=== PATIENT | male | born 1955 | race Caucasian/White ===

== ENCOUNTER 2019-02-08 13:49 | Emergency (ER) | payer MEDICARE, BC ==
[2019-02-08 14:00] VITALS: BP 139/91; PULSE 87
[2019-02-08] MEDS ORDERED: Sodium Chloride 0.9% 1,000 ML IV SCH (14:15)
[2019-02-08] MEDS ORDERED: Iopamidol 612 MG/ML 100 ML Bottle IVPUSH ONE (14:19)
--- NOTE | 2019-02-08 14:31 | EDM.PDOC ---
ED HPI GENERAL MEDICAL PROBLEM - General Chief Complaint: Trauma Stated Complaint: FELL 6 - 7 FT FROM GRAIN BAGGER Time Seen by Provider: 02/08/19 14:00 Source of Information: Reports: Patient History Limitations: Reports: No Limitations - History of Present Illness INITIAL COMMENTS - FREE TEXT/NARRATIVE: A trauma alert was called for this patient. Mr. Stiles is a pleasant 63-year-old gentleman with a past medical history significant for coronary artery disease, status post an MO in April 2016, who states that he fell backwards, around 6-7 feet off of a grain bagger around 07:30 to 08:00 this morning, landing on his back in the dirt. He states that he did not strike his head, and there was no loss of consciousness. He states that he immediately developed pain to his posterior upper right back, but only if he moves his right upper extremity, takes a deep breath, bends forward, or twists his body. He has no pain if he remains still. He states that he took one tablet of [place] around 08:30 to 09:00. The patient's PCP is Dr. Ronnie Weinstein. His Employment Manager is Dr. Last Gee. His Urologist is Dr. Ventura Thornton. Upper Back Pain Score (Numeric/FACES): 9 - Related Data Allergies Allergy/AdvReac Type Severity Reaction Status Date / Time Anesthetics - Elizabet Type- Allergy Cannot Verified 02/08/19 14:34 Parabens Remember [Anesthetics - Elizabet Type] Penicillins Allergy Hives Verified 02/08/19 14:34 nausea medication Allergy Other Uncoded 05/09/16 14:49 Home Meds: Home Meds Lotensin. 10 mg PO DAILY 03/29/14 [History] Acetaminophen/HYDROcodone [[place] 325-5 MG] 1 - 2 tab PO Q6H PRN #14 tablet 02/08 [Rx] Clopidogrel [Plavix] 75 mg PO DAILY 02/08/19 [History] Lisinopril 5 mg PO DAILY 02/08/19 [History] Past Medical History Cardiovascular History: Reports: CAD, Hypertension, [place] (Apr 2016, s/p 1 coronary stent) Gastrointestinal History: Reports: Diverticulosis Genitourinary History: Reports: Renal Calculus - Past Surgical History Cardiovascular Surgical History: Reports: Coronary Artery Stent (x 1, Apr 2016) Male Surgical History: Reports: Kidney Stone Extraction Musculoskeletal Surgical History: Reports: Other (See Below) (Repair left leg degloving) Social & Family History - Tobacco Use Smoking Status *Q: Never Smoker Second Hand Smoke Exposure: No - Caffeine Use Caffeine Use: Reports: Coffee - Alcohol Use Alcohol Use History: Yes Alcohol Use Frequency: Socially - Recreational Drug Use Recreational Drug Use: No - Living Situation & Occupation Living situation: Reports: , with Spouse Occupation: Employed ([employer]) Review of Systems - Review of Systems Review Of Systems: ROS reveals no pertinent complaints other than HPI. ED EXAM, GENERAL - Physical Exam Exam: See Below Exam Limited By: No Limitations General Appearance: Alert, WD/WN, Mild Distress (appears uncomfortable) Eye Exam: Bilateral Eye: EOMI, Normal Inspection Ears: Normal External Exam, Hearing Grossly Normal Nose: Normal Inspection Throat/Mouth: Normal Inspection, Normal Lips, Normal Voice, No Airway Compromise Head: Atraumatic, Normocephalic Neck: Normal Inspection, Full Range of Motion Respiratory/Chest: No Respiratory Distress, Lungs Clear, Normal Breath Sounds, No Accessory Muscle Use, Other (Exquisite tenderness to palpation to the patient 's upper and mid right back, right lateral chest, and anterior right chest, extending to the RUQ. No visible abnormalities, such as swelling, erythema, ecchymosis, or abrasion. No crepitus felt.) Cardiovascular: Normal Peripheral Pulses, Regular Rate, Rhythm, No Gallop, No JVD, No Murmur, No Rub Peripheral Pulses: 4+: Radial (L), Radial (R) GI/Abdominal: Normal Bowel Sounds, Soft, Non-Tender, No Organomegaly, No Distention, No Abnormal Bruit, No Mass (Male) Exam: Deferred Rectal (Males) Exam: Deferred Back Exam: Normal Inspection, Full Range of Motion, Paraspinal Tenderness ( upper right). No: Vertebral Tenderness Extremities: Normal Inspection, Normal Range of Motion, No Pedal Edema, Normal Capillary Refill Neurological: Alert, Oriented, Normal Cognition, No Motor/Sensory Deficits Psychiatric: Normal Affect Skin Exam: Warm, Dry, Intact, Normal Color, No Rash EKG INTERPRETATION EKG Date: 02/08/19 Time: 14:27 Rhythm: Other (Ectopic atrial rhythm) Rate (Beats/Min): 80 [place]: LAD-Left [place] Deviation (2 LAFB) P-Wave: Present QRS: RBBB (Early transition) ST-T: Normal QT: Prolonged (QTc 492 ms) Comparison: Change From Previous EKG (Ischemic changes seen 05/09/2016 resolved) Course - Vital Signs Last Recorded V/S: Last Vital Signs Temp 36.7 C 02/08/19 13:59 Pulse 87 02/08/19 13:59 Resp 15 02/08/19 13:59 BP 139/91 H 02/08/19 13:59 Pulse Ox 94 L 02/08/19 13:59 - Orders/Labs/Meds Labs: Laboratory Tests 02/08/19 02/08/19 02/08/19 Range/Units 14:21 14:21 14:21 WBC 8.23 (4.23-9.07) K/mm3 RBC 4.77 (4.63-6.08) M/mm3 Hgb 14.7 D (13.7-17.5) gm/dl Hct 41.5 (40.1-51.0) % MCV 87.0 (79.0-92.2) fl MCH 30.8 (25.7-32.2) pg MCHC 35.4 (32.2-35.5) g/dl RDW Std Deviation 41.2 (35.1-43.9) fL Plt Count 146 L (163-337) K/mm3 MPV 10.4 (9.4-12.3) fl Neut % (Auto) 74.3 H (34.0-67.9) % Lymph % (Auto) 13.2 L (21.8-53.1) % [place] % (Auto) 9.7 (5.3-12.2) % Eos % (Auto) 2.2 (0.8-7.0) Baso % (Auto) 0.4 (0.1-1.2) % Neut # (Auto) 6.11 H (1.78-5.38) K/mm3 Lymph # (Auto) 1.09 L (1.32-3.57) K/mm3 [place] # (Auto) 0.80 (0.30-0.82) K/mm3 Eos # (Auto) 0.18 (0.04-0.54) K/mm3 Baso # (Auto) 0.03 (0.01-0.08) K/mm3 PT 10.6 (9.7-12.0) SECONDS INR 0.97 APTT 25 (22-31) SECONDS Sodium 139 (136-145) mEq/L Potassium 4.0 (3.5-5.1) mEq/L Chloride 107 (98-107) mEq/L Carbon Dioxide 21 (21-32) mEq/L Anion Gap 15.0 (5-15) BUN 25 H (7-18) mg/dL Creatinine 1.0 (0.7-1.3) mg/dL Est Cr Clr Drug Dosing 83.23 mL/min Estimated GFR (MDRD) > 60 (>60) mL/min BUN/Creatinine Ratio 25.0 H (14-18) Glucose 112 (80-115) mg/dL Calcium 9.0 (8.5-10.1) mg/dL Total Bilirubin 1.1 H (0.2-1.0) mg/dL AST 23 (15-37) U/L ALT 33 (16-63) U/L Alkaline Phosphatase 89 (46-116) U/L Total Protein 7.2 (6.4-8.2) g/dl Albumin 4.5 (3.4-5.0) g/dl Globulin 2.7 gm/dL Albumin/Globulin Ratio 1.7 (1-2) Meds: Medications Discontinued Medications Generic Name Dose Route Start Last Admin Trade Name Freq PRN Reason Stop Dose Admin Sodium Chloride 1,000 mls @ 150 mls/hr 02/08/19 14:15 02/08/19 14:35 Normal Saline IV 150 mls/hr ASDIRECTED CHUYITA Administration Iopamidol 100 ml 02/08/19 14:19 02/08/19 14:40 Isovue-300 (61%) IVPUSH 02/08/19 14:20 100 ml ONETIME ONE Administration Sodium Chloride 10 ml 02/08/19 14:19 02/08/19 14:40 Saline Flush FLUSH 02/08/19 23:00 10 ml ONETIME PRN Administration KEEP VEIN OPEN - Re-Assessments/Exams Free Text/Narrative Re-Assessment/Exam: 02/08/19 14:15 While the patient is complaining of upper right back pain only, and only with deep breaths or movements of his right upper extremity, twisting, or bending, on examination, the patient has exquisite pain to his entire anterior right side , extending down to his right upper quadrant, along with similar exquisite pain to palpation of his upper and mid right back. No tenderness to his right upper extremity. No visible abnormalities to his thorax, but given the nature of his fall, I am concerned about a significant injury, therefore I have ordered a CT of his chest, abdomen, and pelvis with IV contrast. In the meantime, I have ordered some blood work and an ECG him along with IV fluid. The patient was offered pain medication, but declined at this time. 02/08/19 15:28 The patient's CBC is remarkable for platelets mildly depressed at 146,000, but is otherwise unremarkable. His CMP is remarkable for BUN slightly elevated at 25, with a normal creatinine. His total bilirubin is slightly elevated at 1.1. Remainder of his CMP is unremarkable. Coags are all within normal limits. The report of the CT of the chest, abdomen, and pelvis is still pending. 02/08/19 16:10 CT of the chest with IV contrast is read by Dr. Grijalva as: 1. Extensive coronary artery calcification. Mildly aneurysmal ascending aorta. 2. Basilar atelectasis. 3. Other incidental findings. Nothing acute seen on CT study of the chest. CT of the abdomen and pelvis with IV contrast is read by Dr. Grijalva as: 1. Findings as noted above. Nothing acute is appreciated on CT study of the abdomen and pelvis. 02/08/19 16:36 Test results discussed with the patient and his . No significant injuries were found. The patient appears to have a chest contusion. I will discharge him home with a prescription for [place]. Departure - Departure Time of Disposition: 16:37 Disposition: Home, Self-Care 01 Condition: Good Clinical Impression: Fall as cause of accidental injury on farm as place of occurrence, Chest wall contusion - Discharge Information *PRESCRIPTION DRUG MONITORING PROGRAM REVIEWED*: Not Applicable *COPY OF PRESCRIPTION DRUG MONITORING REPORT IN PATIENT KEN: Not Applicable Prescriptions: Acetaminophen/HYDROcodone [[place] 325-5 MG] 1 - 2 tab PO Q6H PRN #14 tablet PRN Reason: Pain (Severe 7-10) Instructions: Chest Contusion, Adult, [id number] Referrals: Ronnie Weinstein Jr, MD [Primary Care Provider] - Last Gee MD [Ordering Only Provider] - Ventura Thornton MD [Ordering Only Provider] - Forms: ED Department Discharge Additional Instructions: You were seen in the emergency room after falling approximately 6 feet off of a grain bagger this morning. Workup in the ER included a CT scan of your chest, abdomen, and pelvis with IV contrast, blood work, and an ECG. Your entire workup was unremarkable. No broken bones were found. 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 This needs to be followed by your Employment Manager. A prescription for the opioid pain reliever [place] has been provided to you. You may take 1-2 tablets of [place] up to every 6 hours, as needed for pain. If you take [place], do not drive or operate heavy machinery for 12 hours afterwards. [place] will likely cause constipation, so consider taking a stool softener. Follow-up with your PCP, Dr. Ronnie Weinstein, as needed. If any other problems, please do not hesitate to return to the ER.
[2019-02-08] MEDS: Sodium Chloride 0.9% 10 ML Syringe FLUSH PRN ×2 (14:36→14:40)
--- NOTE | 2019-02-08 15:47 | CT ---
CT chest Technique: Multiple axial sections were obtained from above the lung apices inferiorly through the lung bases. Intravenous contrast was utilized. Comparison: No prior chest CT is available, prior chest x-ray of 05/09/16. Findings: Fairly extensive coronary artery calcification is seen. Ascending aorta is mildly aneurysmal at 4.1 cm. Atherosclerotic calcification is noted within the thoracic aorta. Mediastinum and hilar region show no adenopathy or mass. Mild atelectasis is seen within both posterior lungs. Lungs otherwise are clear with no pulmonary contusion being seen. No pleural effusions or pneumothorax is seen. No discrete acute rib fracture is seen. Old fracture is noted which shows bridging callus noted within the left 9th rib. Thoracic spine shows no compression deformities. Reconstructed sagittal images of the sternum show no fracture. Impression: 1. Extensive coronary artery calcification. Mildly aneurysmal ascending aorta. 2. Basilar atelectasis. 3. Other incidental findings. Nothing acute seen on CT study of the chest. Diagnostic code #2 CT abdomen and pelvis Technique: Multiple axial sections were obtained from above the dome of the diaphragm inferiorly through the pubic symphysis. Intravenous contrast was utilized. No oral contrast has been given. Comparison: No prior abdominal imaging. Findings: Liver shows mild fatty infiltration. No focal abnormality is seen within the liver. Spleen appears within normal limits. Soft tissue nodule is noted medial to the spleen compatible with accessory splenic tissue. Left kidney shows diffuse cortical thinning and contains multiple nonobstructing calculi as well as small cortical cysts. Several cortical cysts are noted within the right kidney. Right kidney shows less atrophy than on the opposite side. No hydronephrosis is seen. Pancreas is within normal limits. Gallbladder contains no calcified gallstones. Aorta shows no aneurysm. No retroperitoneal adenopathy or mesenteric abnormalities are seen. Numerous diverticuli are seen within the sigmoid colon without findings of diverticulitis. Small fat-containing inguinal hernias are noted on both sides. No free fluid or inflammatory change is seen. Appendix is seen and is normal in size. Bone window settings were reviewed which show degenerative change within the lumbar spine. Nothing acute is appreciated within the lumbar spine or within the pelvis. Impression: 1. Findings as noted above. Nothing acute is appreciated on CT study of the abdomen and pelvis. Diagnostic code #2
== END 2019-02-08 17:02 | disposition home or self-care (01) ==
LOC: JD.ED 13:49
DX: S20.211A Contusion of right front wall of thorax, initial encounter (principal); I10 Essential (primary) hypertension; I25.10 Atherosclerotic heart disease of native coronary artery without angina pectoris; I25.2 Old myocardial infarction; Z95.5 Presence of coronary angioplasty implant and graft; Z88.0 Allergy status to penicillin; Z88.6 Allergy status to analgesic agent; Z88.8 Allergy status to other drugs, medicaments and biological substances; Z79.01 Long term (current) use of anticoagulants; Z79.899 Other long term (current) drug therapy; W17.89XA Other fall from one level to another, initial encounter
CPT/HCPCS: 36415; 71260; 74177; 80053; 85025; 85610; 85730; 93005; 96360; 96361; 99284; J7040; Q9967; 93010

== ENCOUNTER 2019-04-29 15:52 | Emergency (ER) | payer MEDICARE, BC ==
[2019-04-29 16:05] VITALS: BP 158/91; PULSE 80
--- NOTE | 2019-04-29 17:21 | EDM.PDOC ---
ED HPI GENERAL MEDICAL PROBLEM - General Chief Complaint: General Stated Complaint: L SIDE RIB PAIN Time Seen by Provider: 04/29/19 16:11 Source of Information: Reports: Patient, RN Notes Reviewed - History of Present Illness INITIAL COMMENTS - FREE TEXT/NARRATIVE: Patient is 64-year-old gentleman that slipped on the ice 5 days ago following on his left side. 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 Since that time the pain is been much more severe and persistent than what he had been having previously. Zyrtec take a deep breath, hurts to move in any direction and even does have some discomfort at rest. He did have a similar fall a couple months ago but that discomfort did eventually go away, he felt that was probably just a "bruised rib that did eventually heal. Treatments CHART PICKER: Reports: Other (see below) Other Treatments CHART PICKER: percocet 1 tab at 10 am - Related Data Allergies Allergy/AdvReac Type Severity Reaction Status Date / Time Anesthetics - Elizabet Type- Allergy Cannot Verified 02/08/19 14:34 Parabens Remember [Anesthetics - Elizabet Type] Penicillins Allergy Hives Verified 02/08/19 14:34 nausea medication Allergy Other Uncoded 05/09/16 14:49 Home Meds: Home Meds Lisinopril 20 mg PO BID 02/08/19 [History] Acetaminophen/HYDROcodone [[place] 325-5 MG] 1 tab PO Q4H PRN #20 tablet 04/29/19 [Rx] Rosuvastatin [Crestor] 10 mg PO DAILY 04/29/19 [History] Past Medical History Cardiovascular History: Reports: CAD, Hypertension, [place], Stents Gastrointestinal History: Reports: Diverticulosis Genitourinary History: Reports: Renal Calculus - Past Surgical History Cardiovascular Surgical History: Reports: Coronary Artery Stent Other Cardiovascular Surgeries/Procedures: one stent Male Surgical History: Reports: Kidney Stone Extraction Musculoskeletal Surgical History: Reports: Other (See Below) Social & Family History - Tobacco Use Smoking Status *Q: Never Smoker - Caffeine Use Caffeine Use: Reports: Coffee, Soda, Tea - Recreational Drug Use Recreational Drug Use: No - Living Situation & Occupation Living situation: Reports: , with Spouse Occupation: Employed ([employer]) ED ROS GENERAL - Review of Systems Review Of Systems: See Below Constitutional: Denies: Diaphoresis HEENT: Reports: No Symptoms Respiratory: Reports: Pleuritic Chest Pain. Denies: Shortness of Breath Cardiovascular: Reports: Chest Pain GI/Abdominal: Denies: Abdominal Pain, Nausea, Vomiting Musculoskeletal: Denies: Neck Pain, Shoulder Pain, Arm Pain, Back Pain Skin: Reports: No Symptoms Neurological: Denies: Dizziness, Headache, Numbness, Tingling, Weakness ED EXAM, GENERAL - Physical Exam Exam: See Below General Appearance: Alert, Mild Distress Eye Exam: Bilateral Eye: PERRL Ears: Normal External Exam Head: Atraumatic. No: Facial Swelling Neck: Supple, Non-Tender, Full Range of Motion Respiratory/Chest: No Respiratory Distress, Lungs Clear, Normal Breath Sounds, Other (Tender L lateral ribs, no crepitus, no visible swelling or bruising) Cardiovascular: Regular Rate, Rhythm GI/Abdominal: Soft, Non-Tender Back Exam: No: Paraspinal Tenderness, Vertebral Tenderness Extremities: Normal Inspection, Normal Range of Motion Neurological: Alert, Oriented, No Motor/Sensory Deficits Skin Exam: Warm, Dry, Normal Color Course - Vital Signs Last Recorded V/S: Last Vital Signs Temp 97.2 F 04/29/19 16:03 Pulse 80 04/29/19 16:03 Resp 16 04/29/19 16:03 BP 158/91 H 04/29/19 16:03 Pulse Ox 94 L 04/29/19 16:03 - Re-Assessments/Exams Free Text/Narrative Re-Assessment/Exam: 05/01/19 14:42 On X ray there is what looks like on lateral lower rib fx or perhaps healing fx from prior injury. Discharge instr. as documened. Departure - Departure Time of Disposition: 17:20 Disposition: Home, Self-Care 01 Condition: Fair Clinical Impression: Rib fracture Qualifiers: Encounter type: initial encounter Rib fracture type: single rib Fracture type: closed Laterality: left Qualified Code(s): S22.32XA - Fracture of one rib, left side, initial encounter for closed fracture - Discharge Information Prescriptions: Acetaminophen/HYDROcodone [[place] 325-5 MG] 1 tab PO Q4H PRN #20 tablet PRN Reason: Pain Instructions: Rib Fracture, [id number] Referrals: Ronnie Weinstein Jr, MD [Primary Care Provider] - Forms: ED Department Discharge Additional Instructions: Tylenol up to 3 times daily for left chest wall pain as needed or hydrocodone if needed for severe pain. Do not take Tylenol and hydrocodone at the same time. Do not drive motor vehicles or operate equipment when taking the hydrocodone. Prescription for hydrocodone has been sent to [place] [facility] up at the [employer] [facility] store. You may also alternate ice and heat to area of discomfort as needed. Avoid heavy lifting as best you can. Use Kishor wrap when working for extra support to area of pain. Follow-up clinic as needed, return to ED as needed if symptoms worsening in any way.
--- NOTE | 2019-05-02 06:32 | CR ---
Chest and left ribs: Frontal view of the chest was obtained as well as an additional 3 views left ribs. Comparison: Previous chest x-ray of 05/09/16. Previous chest CT of 02/08/19. Findings: Heart size is normal. Tortuous thoracic aorta is seen. Diffuse increased lung markings are seen within the left mid and lower lung as well as scattered areas of scarring within the right upper lung. Several old appearing left lower rib fractures are noted. Renal calculi are felt to be present within the left kidney. Degenerative change and scoliosis are noted within the spine. No discrete acute rib fracture is appreciated. Impression: 1. Chronic change and atelectasis within the left base. Scarring within the right upper lung. 2. Several old left-sided rib fractures. 3. Other findings as noted above which are nonacute. Diagnostic code #2 This report was dictated in [place] Standard Time
== END 2019-04-29 17:35 | disposition home or self-care (01) ==
LOC: JD.ED 15:52
DX: S22.32XA Fracture of one rib, left side, initial encounter for closed fracture (principal); I10 Essential (primary) hypertension; I25.2 Old myocardial infarction; Z88.0 Allergy status to penicillin; Z88.8 Allergy status to other drugs, medicaments and biological substances; Z88.4 Allergy status to anesthetic agent; Z79.899 Other long term (current) drug therapy; W01.0XXA Fall on same level from slipping, tripping and stumbling without subsequent striking against object, initial encounter
CPT/HCPCS: 71101-26-LT; 71101-LT; 99283; 99284-25

== ENCOUNTER 2022-12-15 09:58 | Emergency (ER) | payer OTHER, MEDICARE, BC ==
[2022-12-15] MEDS ORDERED: Iopamidol 612 MG/ML 100 ML Bottle IVPUSH ONE (10:04)
[2022-12-15] MEDS ORDERED: Iopamidol 612 MG/ML 30 ML SDV IVPUSH ONE (10:04)
[2022-12-15] MEDS: Sodium Chloride 0.9% 10 ML Syringe FLUSH PRN ×2 (10:05→10:42)
[2022-12-15] MEDS ORDERED: HYDROmorphone 1 MG/ML Syringe IVPUSH ONE ×2 (10:06→11:44)
[2022-12-15 10:11] VITALS: BP 107/73; PULSE 66
[2022-12-15 10:18] LABS: BASOPHILS ABSOLUTE AUTO 0.04 K/mm3 (0.01-0.08); BASOPHILS PERCENT AUTO 0.4 % (0.1-1.2); EOSINOPHILS ABSOLUTE AUTO 0.17 K/mm3 (0.04-0.54); EOSINOPHILS PERCENT AUTO 1.6 (0.8-7.0); HEMATOCRIT 43.1 % (40.1-51.0); IMMATURE GRAN ABSOLUTE AUTO 0.07 K/mm3 (0.00-0.10); IMMATURE GRAN PERCENT AUTO 0.6 % (<=1.0); LYMPHOCYTES ABSOLUTE AUTO 1.93 K/mm3 (1.32-3.57); LYMPHOCYTES PERCENT AUTO 17.6 % (21.8-53.1); MEAN CORPUSCULAR HEMOGLOBIN 31.3 pg (25.7-32.2); MEAN CORPUSCULAR HGB CONC 34.8 g/dl (32.2-35.5); MEAN CORPUSCULAR VOLUME 89.8 fl (79.0-92.2); MONOCYTES ABSOLUTE AUTO 0.73 K/mm3 (0.30-0.82); MONOCYTES PERCENT AUTO 6.7 % (5.3-12.2); NEUTROPHILS ABSOLUTE AUTO 8.02 K/mm3 (1.78-5.38); NEUTROPHILS PERCENT AUTO 73.1 % (34.0-67.9); PLATELET COUNT,PLT 157 K/mm3 (163-337); WHITE BLOOD CELL COUNT,WBC 10.96 K/mm3 (4.23-9.07)
[2022-12-15 10:32] LABS: A/G RATIO 1.4 (1-2); ALBUMIN 4.1 g/dl (3.4-5.0); BILIRUBIN TOTAL 0.7 mg/dL (0.2-1.0); BUN/CREATININE RATIO 17.3 (14-18); CALCIUM 8.8 mg/dL (8.5-10.1); CREATININE 1.1 mg/dL (0.7-1.3); EST CRCL DRUG DOSING (CG) 71.63 mL/min
[2022-12-15] MEDS ORDERED: Ondansetron 4 MG/2 ML SDV IVPUSH ONE (10:34)
[2022-12-15] MEDS ORDERED: Sodium Chloride 0.9% 1,000 ML IV ONE (11:10)
[2022-12-15] MEDS ORDERED: Lactated Ringers 1,000 ML IV ONE (11:20)
[2022-12-15] MEDS ORDERED: Tranexamic Acid 1,000 MG/10 ML Vial IVPUSH ONE (11:45)
== END 2022-12-15 12:00 ==
LOC: JD.ED 09:58
DX: S22.43XA Multiple fractures of ribs, bilateral, initial encounter for closed fracture (principal); S22.21XA Fracture of manubrium, initial encounter for closed fracture; S42.102A Fracture of unspecified part of scapula, left shoulder, initial encounter for closed fracture; S22.029A Unspecified fracture of second thoracic vertebra, initial encounter for closed fracture; S36.039A Unspecified laceration of spleen, initial encounter; S27.321A Contusion of lung, unilateral, initial encounter; S27.0XXA Traumatic pneumothorax, initial encounter; S27.1XXA Traumatic hemothorax, initial encounter; I95.89 Other hypotension; I25.10 Atherosclerotic heart disease of native coronary artery without angina pectoris; I10 Essential (primary) hypertension; I25.2 Old myocardial infarction; Z88.8 Allergy status to other drugs, medicaments and biological substances; Z88.0 Allergy status to penicillin; Z88.4 Allergy status to anesthetic agent; Z79.899 Other long term (current) drug therapy; V89.2XXA Person injured in unspecified motor-vehicle accident, traffic, initial encounter; Y92.410 Unspecified street and highway as the place of occurrence of the external cause
CPT/HCPCS: 36415; 36430; 70450; 71045; 71260; 72125; 74177; 80053; 83690; 85025; 86850; 86900; 86901; 86922; 96361; 96374; 96375; 96376; 99291; G0390; J1170; J3490; J7120; P9016; P9017; Q9967

== ENCOUNTER 2023-02-01 12:20 | Emergency (ER) | payer MEDICARE, BC ==
[2023-02-01] MEDS ORDERED: Ondansetron 4 MG Tab.DIS PO ONE (12:49)
[2023-02-01] MEDS ORDERED: Meclizine 25 MG Tab PO ONE (12:49)
[2023-02-01 13:24] LABS: BASOPHILS PERCENT AUTO 0.5 % (0.0-1.0); EOSINOPHILS ABSOLUTE AUTO 0.2 K/mm3 (0.0-0.4); EOSINOPHILS PERCENT AUTO 2.5 % (0.0-6.0); HEMATOCRIT 37.5 % (42.0-52.0); HEMOGLOBIN 12.7 gm/dl (14.0-18.0); IMMATURE GRAN ABSOLUTE AUTO 0.03 K/mm3 (0.00-0.05); IMMATURE GRAN PERCENT AUTO 0.5 % (0.0-0.4); LYMPHOCYTES ABSOLUTE AUTO 0.9 K/mm3 (1.0-4.8); LYMPHOCYTES PERCENT AUTO 14.3 % (24.0-44.0); MEAN CORPUSCULAR HEMOGLOBIN 31.8 pg (28.0-32.0); MEAN CORPUSCULAR HGB CONC 33.9 g/dl (32.0-36.0); MEAN CORPUSCULAR VOLUME 93.8 fl (83.0-99.0); MEAN PLATELET VOLUME 10.2 fl (9.4-12.4); MONOCYTES ABSOLUTE AUTO 0.4 K/mm3 (0.0-0.8); MONOCYTES PERCENT AUTO 5.8 % (0.0-8.0); NEUTROPHILS ABSOLUTE AUTO 4.6 K/mm3 (1.8-7.7); NEUTROPHILS PERCENT AUTO 76.4 % (41.0-71.0); PLATELET COUNT,PLT 134 K/mm3 (150-400)
[2023-02-01 13:44] LABS: A/G RATIO 1.3 (1-2); ALBUMIN 4.2 g/dl (3.4-5.0); ANION GAP 17.3 (5-15); BUN/CREATININE RATIO 16.3 (14-18); CALCIUM 9.1 mg/dL (8.5-10.1); CREATININE 0.8 mg/dL (0.7-1.3); EST CRCL DRUG DOSING (CG) 95.65 mL/min; POTASSIUM,K 4.3 mEq/L (3.5-5.1); PROTEIN TOTAL,TP 7.4 g/dl (6.4-8.2)
[2023-02-01 19:37] VITALS: BP 145/91; PULSE 40
== END 2023-02-01 15:03 | disposition home or self-care (01) ==
LOC: JD.ED 12:20
DX: H81.10 Benign paroxysmal vertigo, unspecified ear (principal); I10 Essential (primary) hypertension; I25.10 Atherosclerotic heart disease of native coronary artery without angina pectoris; I25.2 Old myocardial infarction; Z95.5 Presence of coronary angioplasty implant and graft; Z79.82 Long term (current) use of aspirin; Z88.0 Allergy status to penicillin; Z88.1 Allergy status to other antibiotic agents
CPT/HCPCS: 36415; 70450; 71046; 80053; 84484; 85025; 93005; 93246; 99284; A9270; 93010

== ENCOUNTER 2024-02-19 01:00 | Emergency (ER) | payer MEDICARE, BC ==
[2024-02-19] MEDS ORDERED: Nitroglycerin/D5W 25 MG/250 ML BOTTLE IV SCH (01:45)
[2024-02-19] MEDS: Sodium Chloride 0.9% 1,000 ML IV SCH (01:50)
[2024-02-19] MEDS: Aspirin 81 MG Tab.Chew PO ONE (01:50)
[2024-02-19] MEDS: Metoclopramide 10 MG/2 ML SDV IVPUSH ONE (01:51)
[2024-02-19] MEDS: HYDROmorphone 1 MG/ML Syringe IVPUSH ONE (01:54)
[2024-02-19 02:54] LABS: BASOPHILS PERCENT AUTO 0.7 % (0.0-1.0); EOSINOPHILS ABSOLUTE AUTO 0.2 K/mm3 (0.0-0.4); EOSINOPHILS PERCENT AUTO 3.7 % (0.0-6.0); HEMATOCRIT 44.8 % (42.0-52.0); HEMOGLOBIN 15.8 gm/dl (14.0-18.0); IMMATURE GRAN ABSOLUTE AUTO 0.02 K/mm3 (0.00-0.05); IMMATURE GRAN PERCENT AUTO 0.3 % (0.0-0.4); LYMPHOCYTES ABSOLUTE AUTO 1.7 K/mm3 (1.0-4.8); LYMPHOCYTES PERCENT AUTO 30.4 % (24.0-44.0); MEAN CORPUSCULAR HEMOGLOBIN 31.2 pg (28.0-32.0); MEAN CORPUSCULAR HGB CONC 35.3 g/dl (32.0-36.0); MEAN CORPUSCULAR VOLUME 88.5 fl (83.0-99.0); MEAN PLATELET VOLUME 11.3 fl (9.4-12.4); MONOCYTES ABSOLUTE AUTO 0.6 K/mm3 (0.0-0.8); MONOCYTES PERCENT AUTO 10.5 % (0.0-8.0); NEUTROPHILS ABSOLUTE AUTO 3.1 K/mm3 (1.8-7.7); NEUTROPHILS PERCENT AUTO 54.4 % (41.0-71.0); PLATELET COUNT,PLT 108 K/mm3 (150-400); RED BLOOD CELL COUNT 5.06 M/mm3 (4.52-5.90); WHITE BLOOD CELL COUNT,WBC 5.73 K/mm3 (3.9-11.3)
[2024-02-19 02:57] LABS: A/G RATIO 1.6 (1-2); ALANINE AMINOTRANSFERASE,ALT 37 U/L (16-63); ALBUMIN 4.3 g/dl (3.4-5.0); ALKALINE PHOSPHATASE 69 U/L (46-116); ANION GAP 16.2 (5-15); ASPARTATE AMNIOTRANSFERASE,AST 22 U/L (15-37); BILIRUBIN TOTAL 0.8 mg/dL (0.2-1.0); BLOOD UREA NITROGEN,BUN 19 mg/dL (7-18); CALCIUM 9.4 mg/dL (8.5-10.1); CARBON DIOXIDE,CO2 23 mEq/L (21-32); CHLORIDE,CL 105 mEq/L (98-107); EST CRCL DRUG DOSING (CG) 77.68 mL/min; ESTIMATED GFR 81 mL/min (>60); GLUCOSE RANDOM 123 mg/dL (70-99); MAGNESIUM 1.7 mg/dL (1.8-2.4); POTASSIUM,K 4.2 mEq/L (3.5-5.1); SODIUM,NA 140 mEq/L (136-145); TROPONIN I HIGH SENSITIVITY 10 pg/mL (<=76)
[2024-02-19 02:58] LABS: C-REACTIVE PROTEIN < 0.05 mg/dL (<0.30)
[2024-02-19 03:26] LABS: LACTIC ACID 1.3 mmol/L (0.4-2.0)
[2024-02-19] MEDS: Dicyclomine 10 MG Cap PO ONE (04:16)
[2024-02-19 04:28] VITALS: BP 149/93; PULSE 58
== END 2024-02-19 04:25 | disposition home or self-care (01) ==
LOC: JD.ED 01:00
DX: R07.89 Other chest pain (principal); K44.9 Diaphragmatic hernia without obstruction or gangrene; I10 Essential (primary) hypertension; E78.00 Pure hypercholesterolemia, unspecified; Z95.5 Presence of coronary angioplasty implant and graft; Z79.82 Long term (current) use of aspirin; Z79.899 Other long term (current) drug therapy; Z88.0 Allergy status to penicillin; Z88.6 Allergy status to analgesic agent; Z91.012 Allergy to eggs; Z88.8 Allergy status to other drugs, medicaments and biological substances; Z88.4 Allergy status to anesthetic agent
CPT/HCPCS: 36415; 71045; 80053; 83605; 83735; 84484; 85025; 86140; 93005; 96374; 96375; 99285; A9270; J1170; J2765; J7030; 93010; 99284